=== PATIENT | female | born 1945 | race Caucasian/White ===

== ENCOUNTER 2019-05-30 21:56 | Emergency (ER) | payer OTHER, MEDICAID ==
[~2019-05-30] VITALS: Ht 165.1 cm; Wt 82.7 kg
[2019-05-30 22:05] VITALS: Ht 165.1 cm; Wt 82.7 kg
[2019-05-30] MEDS ORDERED: SODIUM CHLORIDE 0.9% 1L BAG IV* STA (22:08)
[2019-05-30] MEDS ORDERED: CEFEPIME 2GM/50 ML (PMX) 50 ML IVPB STA (22:08)
[2019-05-30] MEDS ORDERED: VANCOMYCIN 1 GM (PMX) 250 ML IVPB ONE (22:30)
[2019-05-30] MEDS ORDERED: ASPIRIN 81 MG TAB ONE (23:26)
[2019-05-30] MEDS ORDERED: ASPIRIN 81 MG TAB GTB ONE (23:30)
[2019-05-30 23:46] VITALS: BP 125/69; PULSE 95; RESP 19
== END 2019-05-30 23:48 | disposition short-term general hospital (02) ==
LOC: E/R 21:56
DX: J96.01 Acute respiratory failure with hypoxia (principal); R65.20 Severe sepsis without septic shock; A41.9 Sepsis, unspecified organism; I24.9 Acute ischemic heart disease, unspecified; G93.40 Encephalopathy, unspecified; J18.9 Pneumonia, unspecified organism; R40.2122 Coma scale, eyes open, to pain, at arrival to emergency department; R40.2312 Coma scale, best motor response, none, at arrival to emergency department; R40.2212 Coma scale, best verbal response, none, at arrival to emergency department
CPT/HCPCS: 36415; 36600; 71045; 80053; 82803; 83605; 84484; 85025; 85610; 85730; 87040; 93005; 94002; 96374; 96375; 99285; J0692; J3370; J7030